=== PATIENT | male | born 1960 | race Caucasian/White ===

== ENCOUNTER 2017-12-11 06:21 | Day surgery (SDC) | payer BC ==
[2017-12-09 09:08] LABS: BASOPHILS % (AUTO) 0.6 % (0.0-5.0); EOSINOPHILS % (AUTO) 1.7 % (0.0-8.0); HEMATOCRIT 41.1 % (42-54); MEAN CORPUSCULAR HEMOGLOBIN 29.7 pg (27.0-33.0); MEAN CORPUSCULAR HGB CONC 34.2 g/dL (32.0-36.0); MONOCYTES % (AUTO) 10.9 % (3.0-13.0); NEUTROPHILS % (AUTO) 66.8 % (40.0-77.0); PLATELET COUNT (AUTO) 277 K/uL (130-400); RED BLOOD CELL COUNT(AUTO) 4.73 MIL/uL (4.50-6.20); RED CELL DISTRIBUTION WIDTH 13.4 % (11.0-15.5); WHITE BLOOD COUNT (AUTO) 4.9 K/uL (4.8-10.8)
[2017-12-09 09:09] LABS: APPEARANCE,URINE CLEAR (CLEAR); BILIRUBIN,URINE NEGATIVE (NEGATIVE); COLOR,URINE YELLOW (YELLOW); GLUCOSE, URINE (UA) NEGATIVE (NEGATIVE); KETONES,URINE NEGATIVE (NEGATIVE); LEUKOCYTE ESTERASE ,URINE NEGATIVE (NEGATIVE); NITRATE,URINE NEGATIVE (NEGATIVE); OCCULT BLOOD,URINE NEGATIVE (NEGATIVE); PH,URINE 7.5 (5.0-8.0); PROTEIN,URINE NEGATIVE (NEGATIVE); UROBILINOGEN,URINE 0.2 mg/dL (0.2-1.0)
[2017-12-09 09:12] VITALS: BP 133/81
[~2017-12-11] VITALS: Ht 168.9 cm; Wt 63.3 kg
[2017-12-11] VITALS (14 sets, daily range): BP systolic 94–121; BP diastolic 62–87
[2017-12-11] MEDS ORDERED: LACTATED RINGERS 1000ML 1,000 ML IV ONE (07:00)
[2017-12-11] MEDS ORDERED: MIDAZOLAM HCL 1 MG/ML 2ML VIAL ONE (07:51)
[2017-12-11] MEDS ORDERED: GLYCOPYRROLATE 0.2 MG/ML 5 ML VIAL ONE (07:51)
[2017-12-11] MEDS ORDERED: LIDOCAINE PF 2% 5ML ABBOJECT ONE (07:51)
[2017-12-11] MEDS ORDERED: DEXAMETHASONE SOD PHOSPHATE 10MG/ML 1ML VIAL ONE (07:51)
[2017-12-11] MEDS ORDERED: FENTANYL CITRATE PF 50 MCG/1 ML 2ML VIAL ONE (07:52)
[2017-12-11] MEDS ORDERED: PROPOFOL 10 MG/ML 20ML VIAL IV ONE (07:52)
[2017-12-11] MEDS ORDERED: MEPERIDINE-PF 50 MG/ML SYG ONE (08:55)
[2017-12-11] MEDS ORDERED: CALDOLOR 800MG+NS 250ML 250 ML IV ONE (08:55)
== END 2017-12-11 10:29 | disposition home or self-care (01) ==
LOC: DAH 06:21
PROVIDERS: ATTEND Surgery
DX: K40.90 Unilateral inguinal hernia, without obstruction or gangrene, not specified as recurrent (principal); D64.9 Anemia, unspecified; Z80.42 Family history of malignant neoplasm of prostate; Z98.890 Other specified postprocedural states; Z79.899 Other long term (current) drug therapy; F17.200 Nicotine dependence, unspecified, uncomplicated
CPT/HCPCS: 36415; 49505; 81003; 85025; A4450; C1729; C1781; J1100; J1741; J2001; J2175; J2250; J2704; J3010; J3490; J7030; J7120

== ENCOUNTER → 2024-10-15 | Outpatient (CLI) | payer BC ==
--- NOTE | 2024-10-17 01:43 | HMCSR ---
APPROVED REPORT EXAM: Two-dimensional and M-mode echocardiogram with Doppler and color Doppler. INDICATION ICD: cardiomyopathy, unspecified 2D Dimensions RVDd3.3 cmLVEF(%)40.2 (>50%)LVED Vol(simp.)123.3 mL IVSd0.8 (0.7-1.1cm)FS(%)20 %LVES Vol(simp.)65.4 mL LVDd5.6 (3.8-5.6cm)LA (2D)3.2 (1.6-4.0cm)LVEF(%, simp.)47 % PWd0.8 (0.7-1.1cm)Ao Root(2D)3.5 (2.0-3.7cm)LA ESV INDEX (BP)27.83 mL/m2 LVDs4.5 (2.5-4.0cm)LVOT diam2.5 (1.8-2.4cm) IVC diam1.6 cm M-Mode Dimensions EPSS1.3 cm LA (MM)3.4 (1.6-4.0cm) Ao Root(MM)3.0 (2.0-3.7cm) Aortic Valve AoV Vmax0.9 m/Boyd Peak GR3.4 mmHgLVOT Vmax0.6 m/s AoV VTI0.2 mAo Mean GR2.1 mmHgLVOT VTI0.14 m WILFRED (VMAX)3.4 cm2AVA (VTI) 3.4 cm2 Mitral Valve MV E Vmax77.7 cm/sDECEL Akzc789 ms MV A Vmax88.8 cm/sP 1/2 T54 ms E/A ratio0.9MVA (PHT)4.0 cm2 TDI E/E' Kkzcnm32.9 Medial E' Peak V6.00 cm/s Tricuspid Valve TR Vmax2.2 m/sRVSP19.0 mmHg TR Peak GR19.0 mmHg Left Ventricle Left ventricular cavity size is normal. Mild diffuse hypokinesis There is normal left ventricular wal l thickness. LVEF is 45%. grade 1 diastolic dysfunction Right Ventricle The right ventricle is normal size. The right ventricular systolic function is normal. Atria The left atrium size is normal. The right atrium size is normal. Aortic Valve The aortic valve is normal in structure and function. No aortic regurgitation is present. There is no aortic valvular stenosis. Mitral Valve The mitral valve is normal in structure and function. There is no mitral valve regurgitation noted. T here is no mitral valve stenosis. Tricuspid Valve The tricuspid valve is normal in structure and function. There is mild tricuspid valve regurgitation noted. Pulmonic Valve The pulmonary valve is normal in structure and function. There is mild pulmonic valvular regurgitatio n. Great Vessels The aortic root is normal in size. The IVC is normal in size and collapses >50% with inspiration. Pericardium No pericardial effusion. Conclusion LVEF is 45%. grade 1 diastolic dysfunction There is normal left ventricular wall thickness. Left ventricular cavity size is normal. Mild diffuse hypokinesis No pericardial effusion. Normal pulmonary pressures Study quality was adequate
== END | disposition home or self-care (01) ==
LOC: RAH 10:27
PROVIDERS: ATTEND Internal Medicine Cardiovascular Disease
DX: I08.8 Other rheumatic multiple valve diseases (principal); I42.9 Cardiomyopathy, unspecified
CPT/HCPCS: 93306